=== PATIENT | male | born 1995 | race Caucasian/White ===

== ENCOUNTER 2020-07-03 05:28 | Emergency (ER) | payer OTHER ==
[~2020-07-03] VITALS: Ht 172.7 cm; Wt 90.7 kg
[2020-07-03 06:59] VITALS: BP 135/76
== END 2020-07-03 07:01 | disposition home or self-care (01) ==
LOC: ER 05:28
DX: S81.812A Laceration without foreign body, left lower leg, initial encounter (principal); S81.811A Laceration without foreign body, right lower leg, initial encounter; F17.210 Nicotine dependence, cigarettes, uncomplicated; Z98.890 Other specified postprocedural states; W26.8XXA Contact with other sharp object(s), not elsewhere classified, initial encounter; Y93.89 Activity, other specified; Y92.89 Other specified places as the place of occurrence of the external cause; Y99.8 Other external cause status